=== PATIENT | male | born 1950 | race Caucasian/White ===

== ENCOUNTER 2024-10-01 13:35 | Emergency (ER) | payer MEDICARE, BC ==
[~2024-10-01] VITALS: Ht 182.9 cm; Wt 106.1 kg
[~2024-10-01 13:35] MED LIST: CARVEDILOL12.5 MG PO; COSOPT EYE DROP10 ML; DIOVAN160 MG PO; FISH OIL 1,0001 EAC7; HYDROCHLOROTHIA25 MG PO; LATANOPROST2.5 ML OP; MULTI-VITAMIN1 EACH PO; OMEPRAZOLE40 MG PO; OSTEO BI-FLEX1 EAC4; TYLENOL EXTRA500 MG PO; VITAMIN C1000 MG PO; [UNRECOGNIZED DRUG - OTHER]
[2024-10-01 13:39] VITALS: PULSE 68; RESP 17; TEMP 98.4
[2024-10-01 15:48] VITALS: BP 136/73; PULSE 71; RESP 17; O2SAT 100
== END 2024-10-01 15:51 | disposition home or self-care (01) ==
LOC: ER 14:18
DX: R60.9 Edema, unspecified (principal); I10 Essential (primary) hypertension; I48.91 Unspecified atrial fibrillation
CPT/HCPCS: 93971; 99283